=== PATIENT | female | born 1980 | race African-American/Black ===

== ENCOUNTER 2016-08-30 18:00 | Emergency (ER) | payer OTHER, SELFPAY ==
[~2016-08-30] VITALS: Ht 175.3 cm; Wt 52.2 kg
[~2016-08-30 18:00] MED LIST: ALBUTEROL SULF8.5 GM INH; SILVADENE CREAM50 GM TOP
[2016-08-30] MEDS ORDERED: NKM (18:25)
[2016-08-30] MEDS ORDERED: Ketorolac 30mg Inj IM ONE (18:45)
[2016-08-30 19:20] VITALS: BP 120/82
[2016-08-30] MEDS ORDERED: TESSALON PERLE100 MG ORAL (19:43)
[2016-08-30] MEDS ORDERED: PROAIR HFA8.5 GM INH (19:43)
[2016-08-30] MEDS ORDERED: PREDNISONE20 MG ORAL (19:43)
[2016-08-30] MEDS ORDERED: ZITHROMAX250 MG ORAL (19:43)
[2016-08-30 19:50] VITALS: BP 120/82
--- NOTE | 2016-08-31 09:42 | Diagnostic Imaging Report ---
Indication: PAIN Technique: XRAY CHEST 2V Comparison: None. Findings: The cardiomediastinal silhouette is normal. The lungs are clear. There is no evidence of pleural fluid. There is mild scoliosis convex to the right. Impression: Scoliosis. Otherwise normal chest.
--- NOTE | 2016-09-01 12:32 | Emergency Room Report ---
History of Present Illness General Chief Complaint: General Complaint Source: Patient Present Illness HPI The patient is a 36-year-old female presenting for headache, fatigue, coughing, and pain to the right axilla which began one week prior. The pt denies any medical history. Pain is described as a 5/10 dull ache and does not radiate. No known provoking or relieving factors. Cough is described as dry. Pt does admit to subjective fevers and chills. She denies any sick contacts or recent travel. She denies any other symptoms including N, V, hemoptysis, SOB, CP, breast pain, nipple discharge. Allergies: Coded Allergies: No Known Allergies (Unverified , 09/08/13) Patient History Past Medical History: see triage record Pertinent Family History: none Last Menstrual Period: 08/29/2016 Reviewed Nursing Documentation: PMH: Agreed, PSxH: Agreed Nursing Documentation-PMH Past Medical History: No Stated History Hx Cardiac Problems: No Hx Hypertension: No Hx Pacemaker: No Hx Asthma: Yes Hx COPD: No Hx Diabetes: No Hx Cancer: No Hx Gastrointestinal Problems: No Hx Dialysis: No Hx Neurological Problems: No Hx Cerebrovascular Accident: No Hx Seizures: No Review of Systems All Other Systems: negative except mentioned in HPI Physical Exam Vital Signs Date Time Temp Pulse Resp B/P Pulse Ox O2 Delivery O2 Flow Rate FiO2 08/30/16 18:21 98.1 74 16 116/80 94 Room Air Sp02 EP Interpretation: reviewed, normal General Appearance: no apparent distress, alert, GCS 15, non-toxic Head: normocephalic, atraumatic Eyes: bilateral eye PERRL, bilateral eye normal inspection ENT: hearing grossly normal, normal pharynx, no angioedema, normal voice Neck: full range of motion, supple/symm/no masses Respiratory: chest non-tender, no respiratory distress, no accessory muscle use , wheezing - R sided Cardiovascular #1: regular rate, rhythm, no edema Gastrointestinal: normal bowel sounds, non tender, soft, non-distended, no guarding, no rebound Genitourinary: normal inspection, no CVA tenderness Musculoskeletal: back normal, gait/station normal, normal range of motion, non- tender Neurologic: alert, oriented x3, responsive, motor strength/tone normal, sensory intact, normal gait, speech normal Psychiatric: judgement/insight normal, memory normal, mood/affect normal, no suicidal/homicidal ideation Skin: normal color, no rash, warm/dry, well hydrated Lymphatic: no adenopathy Medical Decision Making PA Attestation Dr. Patel is my supervising physician. Patient management was discussed with my supervising physician Diagnostic Impression: Primary Impression: Bronchitis ER Course The pt is a 36 yo F presenting for Fever, cough, and R axilla pain Differential diagnosis include but not limited to PNA, bronchitis, malignancy, muscle strain PE: vitals WNL. NAD HEENT unremarkable RRR. No MRG Chest: There is right-sided wheezing with both inspiration and expiration. No accessory muscle use. No respiratory distress. Chest is nontender. No nodules Right axilla: No edema. No discoloration. No nodules. No lymphadenopathy. Nontender Chest x-ray shows increased perihilar markings. The patient will be treated for bronchitis and is getting ER precautions. Patient will follow up with PMD EKG Diagnostic Results EP Interpretation: NSR Rate: normal Rhythm: NSR ST Segments: no acute changes ASA given to the pt in ED: No PA Scribe Text EKG was reviewed and read with my supervising physician. No acute ST segment changes are seen. Normal rate and rhythm. No acute changes. Chest X-Ray Diagnostic Results EP Interpretation: Yes Findings: no consolidation, no effusion, no pneumothorax, other - increased perihilar markings PA Scribe Text I am acting as scribe for my supervising physician. My supervising physician's interpretation of the chest xrays are there is no consolidation, no effusion, no pneumothorax. There is increased perihilar markings. Last Vital Signs Date Time Temp Pulse Resp B/P Pulse Ox O2 Delivery O2 Flow Rate FiO2 08/30/16 19:50 98.2 92 16 120/82 97 Room Air Status: improved Disposition: HOME, SELF-CARE Condition: Improved Scripts Benzonatate* (TESSALON PERLE*) 100 Mg Capsule 100 MG ORAL THREE TIMES A DAY, #15 PERLE Prov: TERZIAN,CATARINO P.A. 08/30/16 Albuterol Sulfate* (PROAIR HFA*) 8.5 Gm Hfa.aer.ad 2 PUFFS INH Q6H, #8.5 GM 0 Refills Prov: TERZIAN,CATARINO P.A. 08/30/16 Prednisone* (PREDNISONE*) 20 Mg Tablet 40 MG ORAL DAILY, #10 TAB Prov: CATARINO MINOR 08/30/16 Azithromycin* (ZITHROMAX*) 250 Mg Tablet 250 MG ORAL DAILY, #6 TAB 0 Refills Take two tables once daily for 1 day, then one tablet once daily for 4 days. Prov: CATARINO MINOR 08/30/16 Referrals: NOT CHOSEN IPA/MD,REFERRING Patient Instructions: Acute Bronchitis Additional Instructions: I discussed my findings with the patient. All questions and concerns have been answered. Treatment and medication compliance have been addressed. I advised the patient that they need to follow up with PMD in 3-5 days. Return to ED if pain remains or worsens, cough worsens or remains, you notice blood in your sputum, you notice wheezing, you experience a fever, or if needed for any reason. Patient verbalized understanding of discharge instructions. CATARINO MINOR Sep 01, 2016 12:32
--- NOTE | 2016-09-03 00:26 | Cardiology Report ---
APPROVED REPORT EKG Measurement Heart [id number] Normal sinus rhythm Normal ECG
== END 2016-08-30 19:50 | disposition home or self-care (01) ==
LOC: EMR 18:35
DX: J40 Bronchitis, not specified as acute or chronic (principal); J45.909 Unspecified asthma, uncomplicated; R53.83 Other fatigue
CPT/HCPCS: 71020; 93005; 96372; 99283; J1885

== ENCOUNTER 2017-07-10 17:38 | Emergency (ER) | payer MEDICAID, OTHER ==
[~2017-07-10] VITALS: Ht 175.3 cm; Wt 51.7 kg
[~2017-07-10 17:38] MED LIST changes: +NKM; +PREDNISONE20 MG ORAL; +PROAIR HFA8.5 GM INH; +TESSALON PERLE100 MG ORAL; +ZITHROMAX250 MG ORAL
[2017-07-10] MEDS ORDERED: Ketorolac 60mg Inj IM ONE (18:15)
--- NOTE | 2017-07-10 18:16 | Emergency Room Report ---
History of Present Illness General Chief Complaint: Pain Source: Patient, Medical Record Present Illness HPI 37-year-old female presents to the emergency department complaining of 10 out of 10 in severity pain to the right shoulder, upper back and right hip status post falling from a horse that he was riding at a "running pace " 1 week ago. Patient states she landed primarily on the right side of her body she denies hitting her head she denies loss of consciousness and can recall the entire event. She reports bruising and abrasion to the right posterior shoulder. She states pain is exacerbated upon palpation or sudden movements. She states that this accident happened a week ago she's been taking Tylenol with no improvement of her symptoms. Denies numbness tingling or loss of sensation or gross motor movements of the extremities, incontinence of bowel or bladder. Denies CP, Palpitations, LOC, AMS, dizziness, Changes in Vision, Sensation, paresthesias, or a sudden severe headache. Allergies: Coded Allergies: HYDROCORTISONE (Verified Allergy, Unknown, 07/10/17) Uncoded Allergies: SULFA (Allergy, Unknown, 07/10/17) Patient History Past Medical History: see triage record Past Surgical History: none Pertinent Family History: none Last Menstrual Period: 07/04/17 Immunizations: UTD Reviewed Nursing Documentation: PMH: Agreed, PSxH: Agreed Nursing Documentation-PMH Past Medical History: No History, Except For Hx Cardiac Problems: No Hx Hypertension: No Hx Pacemaker: No Hx Asthma: Yes Hx COPD: No Hx Diabetes: No Hx Cancer: No Hx Gastrointestinal Problems: No Hx Dialysis: No Hx Neurological Problems: No Hx Cerebrovascular Accident: No Hx Seizures: No Review of Systems All Other Systems: negative except mentioned in HPI Physical Exam Vital Signs Date Time Temp Pulse Resp B/P (MAP) Pulse Ox O2 Delivery O2 Flow Rate FiO2 07/10/17 17:49 97.3 75 18 121/82 100 Room Air 97.3 Sp02 EP Interpretation: reviewed, normal General Appearance: no apparent distress, alert, GCS 15, non-toxic Head: normocephalic, atraumatic ENT: hearing grossly normal, normal voice Neck: full range of motion Respiratory: chest non-tender, lungs clear, normal breath sounds, speaking full sentences Cardiovascular #1: regular rate, rhythm Musculoskeletal: back normal, gait/station normal, normal range of motion, tender - TTP To the T-Spine midline but primarily right paraspinal , Lateral and posterior right shoulder pain, and lateral and posterior right hip pain. Neurologic: alert, oriented x3, responsive, motor strength/tone normal, sensory intact, speech normal, grossly normal Psychiatric: judgement/insight normal Skin: normal color, no rash, warm/dry, well hydrated, other - no obviuos bruises, no current abrasions, some scarring to the upper right shoulder area undeterminate. Medical Decision Making PA Attestation Dr. Patel is my supervising Physician whom patient management has been discussed with. Diagnostic Impression: Primary Impression: Contusion Qualified Codes: S70.01XA - Contusion of right hip, initial encounter Additional Impressions: Contusion of right scapula Qualified Codes: S40.011A - Contusion of right shoulder, initial encounter Contusion of shoulder, right Qualified Codes: S40.011A - Contusion of right shoulder, initial encounter Back pain Qualified Codes: M54.6 - Pain in thoracic spine Contusion of hip, right Qualified Codes: S70.01XA - Contusion of right hip, initial encounter Acromioclavicular joint separation, type 1 Qualified Codes: S43.101A - Unspecified dislocation of right acromioclavicular joint, initial encounter ER Course 37-year-old female presents to the emergency department complaining of 10 out of 10 in severity pain to the right shoulder, upper back and right hip status post falling from a horse that he was riding at a "running pace " 1 week ago. Patient states she landed primarily on the right side of her body she denies hitting her head she denies loss of consciousness and can recall the entire event. She reports bruising and abrasion to the right posterior shoulder. She states pain is exacerbated upon palpation or sudden movements. She states that this accident happened a week ago she's been taking Tylenol with no improvement of her symptoms. Denies numbness tingling or loss of sensation or gross motor movements of the extremities, incontinence of bowel or bladder. Denies CP, Palpitations, LOC, AMS, dizziness, Changes in Vision, Sensation, paresthesias, or a sudden severe headache. Ddx considered but are not limited to Fracture, dislocation, contusion, Sprain/ Strain/Spasm, ligamental injury just to name a few Vital signs: are WNL, pt. is afebrile H&PE are most consistent with musculoskeletal injury will perform imaging to r/ o fractures/dislocations. ORDERS: X-Rays: Right Shoulder, Right Hip, T-Spine ED INTERVENTIONS: - Toradol IM - Right arm Sling applied by technical translator. Pt. remains neurovascularly intact. d/w pt. conservative treatment, and to follow up with a primary care provider. MRI or further testing may be required if symptoms persist after conservative treatment. . D/w pt. to return to the ED with worsening or new symptoms. DISCHARGE: At this time pt. is stable for d/c to home. Will provide printed patient care instructions, and any necessary prescriptions. Care plan and follow up instructions have been discussed with the patient prior to discharge. Other X-Ray Diagnostic Results Other X-Ray Diagnostic Results #1: X-Ray ordered: T-Spine # of Views/Limited Vs Complete: 3 View Indication: Pain EP Interpretation: Yes PA Xray: Interpretation reviewed, by supervising MD, and agrees with findings. Interpretation: no dislocation, no soft tissue swelling, no fractures Impression: No acute disease - awaiting radiologist review/confirmation Electronically Signed by: Latha Sanford PA-C Other X-Ray Diagnostic Results #2: X-Ray ordered: Right Shoulder # of Views/Limited Vs Complete: 3 View Indication: Pain EP Interpretation: Yes PA Xray: Interpretation reviewed, by supervising MD, and agrees with findings. Interpretation: no dislocation, no soft tissue swelling, no fractures, other - mild grade 1 A/C separation Impression: Other - abnormal Other X-Ray Diagnostic Results #3: X-Ray ordered: Right Hip # of Views/Limited Vs Complete: 2 View Indication: Pain EP Interpretation: Yes PA Xray: Interpretation reviewed, by supervising MD, and agrees with findings. Interpretation: no dislocation, no soft tissue swelling, no fractures Impression: No acute disease Electronically Signed by: Latha Sanford PA-C Last Vital Signs Date Time Temp Pulse Resp B/P (MAP) Pulse Ox O2 Delivery O2 Flow Rate FiO2 07/10/17 17:49 97.3 75 18 121/82 100 Room Air 97.3 Disposition: HOME, SELF-CARE Condition: Stable Scripts Ibuprofen* (MOTRIN*) 600 Mg Tablet 600 MG ORAL THREE TIMES A DAY, #20 TAB 0 Refills Prov: Latha Sanford 07/10/17 Acetaminophen With Codeine (T#3) (TYLENOL #3 TAB*) Y Tab 1 TAB ORAL Q6HR Y for For Pain, #6 TAB Prov: Latha Sanford 07/10/17 Patient Instructions: Contusion, [id number], Hip Pain Additional Instructions: Take medications as directed. Follow up with a Primary Care Provider in 3-5 days, even if your symptoms have resolved. --Please review list of primary care clinics, if you do not already have a primary care provider Return sooner to ED if new symptoms occur, or current symptoms become worse. Do not drink alcohol, drive, or operate heavy machinery while taking [ ] as this may cause drowsiness. - Please note that this Emergency Department Report was dictated using [employer] claims supervisor technology software, occasionally this can lead to erroneous entry secondary to interpretation by the dictation equipment. Latha Sanford Jul 10, 2017 18:16
[2017-07-10 18:27] VITALS: BP 121/82
[2017-07-10] MEDS ORDERED: IBUPROFEN600 MG ORAL (19:39)
[2017-07-10] MEDS ORDERED: ACETAMINOPHEN-1 EAC1 ORAL (19:39)
[2017-07-10 19:48] VITALS: BP 120/80
--- NOTE | 2017-07-11 08:49 | Diagnostic Imaging Report ---
Indication: Shoulder pain Technique: Right shoulder, 3 views Comparison: None. Findings: The osseous structures are intact. There is no fracture or destruction. The visualized joints are normal. The soft tissues are unremarkable. Impression: Normal shoulder.
--- NOTE | 2017-07-11 08:50 | Diagnostic Imaging Report ---
Indication: Right hip pain Technique: XRAY Hip Routine 2v+ R Comparison: None. Findings: The osseous structures are intact. There is no fracture or destruction. The visualized joints are normal. The soft tissues are unremarkable. Impression: Normal right hip
--- NOTE | 2017-07-11 08:53 | Diagnostic Imaging Report ---
Indication: Reason For Exam: PAIN Technique: XRAY T Spine 2v Comparison: None. Findings: There is mild scoliosis convex to the right. There is a incompletely visualized compensatory curve in the lumbar spine. No fracture. No evidence of bone destruction. Alignment is otherwise normal. Impression: Mild scoliosis. No acute abnormality. The above report is concordant with preliminary reading by [employer] .
== END 2017-07-10 19:52 | disposition home or self-care (01) ==
LOC: EMR 18:15
DX: S40.011A Contusion of right shoulder, initial encounter (principal); S70.01XA Contusion of right hip, initial encounter; V80.010A Animal-rider injured by fall from or being thrown from horse in noncollision accident, initial encounter; Y92.9 Unspecified place or not applicable; M54.6 Pain in thoracic spine; J45.909 Unspecified asthma, uncomplicated; Z88.2 Allergy status to sulfonamides; Z88.8 Allergy status to other drugs, medicaments and biological substances; M41.84 Other forms of scoliosis, thoracic region
CPT/HCPCS: 29240; 72070; 96372; 99284

== ENCOUNTER 2017-10-28 12:09 | Emergency (ER) | payer MEDICAID ==
[~2017-10-28] VITALS: Ht 175.3 cm; Wt 50.8 kg
[~2017-10-28 12:09] MED LIST changes: +ACETAMINOPHEN-1 EAC1 ORAL; +IBUPROFEN600 MG ORAL
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
[2017-10-28] MEDS ORDERED: IBUPROFEN600 MG ORAL (14:00)
[2017-10-28] MEDS ORDERED: NORCO 5-325 TA1 EACH ORAL (14:00)
[2017-10-28 14:20] VITALS: BP 109/74
--- NOTE | 2017-10-28 16:47 | Diagnostic Imaging Report ---
Indication: Foot pain Technique: 3 or 4 views right foot Comparison: none Findings: There is mild hallux valgus. No acute fractures. No dislocations. Joint spaces are preserved. Impression: No acute process
--- NOTE | 2017-10-28 16:48 | Diagnostic Imaging Report ---
Indication: Pain Technique: 3 views left toes Comparison: none Findings: No acute fractures. No dislocations. The joint spaces are preserved. Impression: Negative
== END 2017-10-28 14:21 | disposition home or self-care (01) ==
LOC: EMR 13:07
DX: S92.525A Nondisplaced fracture of middle phalanx of left lesser toe(s), initial encounter for closed fracture (principal); V93.39XA Fall on board unspecified watercraft, initial encounter; Y93.16 Activity, rowing, canoeing, kayaking, rafting and tubing; Y92.828 Other wilderness area as the place of occurrence of the external cause; Z88.2 Allergy status to sulfonamides; Z88.8 Allergy status to other drugs, medicaments and biological substances; J45.909 Unspecified asthma, uncomplicated; S90.30XA Contusion of unspecified foot, initial encounter
CPT/HCPCS: 99284

== ENCOUNTER 2018-05-20 17:03 | Emergency (ER) | payer MEDICAID ==
[~2018-05-20] VITALS: Ht 175.3 cm; Wt 50.8 kg
[~2018-05-20 17:03] MED LIST changes: +NORCO 5-325 TA1 EACH ORAL
[2018-05-20 18:44] VITALS: BP 133/84
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
--- NOTE | 2018-05-20 18:47 | NUR ---
ED Nurse Note: addendum: pt denies si/hi/vh/ah, states she just needs to talk to someone. Will continue to monitor.
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
[2018-05-20] MEDS ORDERED: IBUPROFEN600 MG ORAL (20:22)
--- NOTE | 2018-05-20 20:40 | NUR ---
ED Nurse Note: Pt discharge instruction provided w/ prescription, id band removed, pt education done via discussion and handout, pt verbalized understanding and agrees with plan, pt advised to follow up with pcp regarding pt's condition, pt advised to return to ed if s/s worsen or new s/s develop. Pt was provided with list of mental clinic regarding depression complaints.
[2018-05-20 20:42] VITALS: BP 129/78
--- NOTE | 2018-05-22 15:49 | Diagnostic Imaging Report ---
Indication: Trauma. Nasal trauma and pain Findings: Bilateral views of the nasal bone and a Malik' view were obtained. The examination shows no acute fracture. The paranasal sinuses as visualized appear clear. Soft tissues unremarkable. Impression: Negative nasal bone series
== END 2018-05-20 20:40 | disposition home or self-care (01) ==
LOC: EMR 17:40
DX: S02.2XXA Fracture of nasal bones, initial encounter for closed fracture (principal); W51.XXXA Accidental striking against or bumped into by another person, initial encounter; Y92.89 Other specified places as the place of occurrence of the external cause; J45.909 Unspecified asthma, uncomplicated; Z88.2 Allergy status to sulfonamides; Z88.8 Allergy status to other drugs, medicaments and biological substances
CPT/HCPCS: 70160; 99283

== ENCOUNTER 2019-02-11 15:38 | Emergency (ER) | payer MEDICAID ==
[~2019-02-11] VITALS: Ht 175.3 cm; Wt 50.8 kg
[2019-02-11] MEDS ORDERED: XANAX0.25 MG ORAL (15:51)
[2019-02-11 16:24] VITALS: BP 113/74
--- NOTE | 2019-02-11 16:24 | NUR ---
ED Nurse Note:pt. went for x-ray
--- NOTE | 2019-02-11 16:48 | Diagnostic Imaging Report ---
EXAM: XR Sinuses Paranasal, 4 Views CLINICAL HISTORY: TRAUMA TECHNIQUE: Frontal, lateral, Water's, and apical lordotic views of the sinuses and paranasal structures. COMPARISON: No relevant prior studies available. FINDINGS: Bones joints: Unremarkable. No visible depressed fracture. Sinuses: Unremarkable. No air-fluid levels. Nasal cavity septum: Unremarkable. Soft tissues: Unremarkable. IMPRESSION: Unremarkable sinus x-rays.
--- NOTE | 2019-02-11 17:01 | Emergency Room Report ---
History of Present Illness General Chief Complaint: Pain Source: Patient Present Illness HPI 39-year-old female with 8 months of nasal bone fracture here requesting a sinus x-ray series as been requested by her plastic specialists Dr. Ryan. Patient has been having continuous pain and pressure in the left side of nasal septum as well as left eye. Reports blurry vision intermittently. Ultrasound has been done on the eye at bedside by Dr. Patel today to detect possible retinal detachment which was ruled out based on bedside ultrasound. Patient rating pain 10 out of 10 and constant reports that she has been taking pain medication however needs a better solution as she keeps having lots and lots of sinus pressure. stuart, water view, and SCV sinus areas are requested by plastic specialist. Patient denies all other injuries and symptoms. Allergies: Coded Allergies: HYDROCORTISONE (Verified Allergy, Unknown, 07/10/17) Uncoded Allergies: SULFA (Allergy, Unknown, 07/10/17) Patient History Past Medical History: see triage record Past Surgical History: unable to obtain Pertinent Family History: none Last Menstrual Period: a week ago Now: No Immunizations: UTD Reviewed Nursing Documentation: PMH: Agreed; PSxH: Agreed Nursing Documentation-PMH Past Medical History: No History, Except For Hx Cardiac Problems: No Hx Hypertension: No Hx Pacemaker: No Hx Asthma: Yes Hx COPD: No Hx Diabetes: No Hx Cancer: No Hx Gastrointestinal Problems: No Hx Dialysis: No History Of Psychiatric Problem: Yes - anxiety Hx Neurological Problems: No Hx Cerebrovascular Accident: No Hx Seizures: No Review of Systems All Other Systems: negative except mentioned in HPI Physical Exam Vital Signs Date Time Temp Pulse Resp B/P (MAP) Pulse Ox O2 Delivery O2 Flow Rate FiO2 02/11/19 15:47 98.2 67 16 113/74 (87) 99 Room Air Sp02 EP Interpretation: reviewed, normal General Appearance: no apparent distress, alert, GCS 15, non-toxic Head: normocephalic, atraumatic Eyes: bilateral eye normal inspection, bilateral eye PERRL ENT: hearing grossly normal, normal pharynx, no angioedema, normal voice Neck: full range of motion, supple/symm/no masses Respiratory: chest non-tender, lungs clear, normal breath sounds, no rhonchi, speaking full sentences Cardiovascular #1: regular rate, rhythm, no edema, no murmur Gastrointestinal: normal bowel sounds, non tender, soft, non-distended, no guarding, no rebound Rectal: deferred Genitourinary: normal inspection, no CVA tenderness Musculoskeletal: back normal, gait/station normal, normal range of motion, non- tender Neurologic: alert, oriented x3, responsive, motor strength/tone normal, sensory intact, speech normal Psychiatric: judgement/insight normal, memory normal, mood/affect normal, no suicidal/homicidal ideation Skin: no rash Lymphatic: no adenopathy Medical Decision Making PA Attestation All my diagnosis and treatment plans were reviewed ad discussed with my supervising physician Dr. Patel Diagnostic Impression: Primary Impression: Sinus pain ER Course 39-year-old female with 8 months of nasal bone fracture here requesting a sinus x-ray series as been requested by her plastic specialists Dr. Ryan. Patient has been having continuous pain and pressure in the left side of nasal septum as well as left eye. Reports blurry vision intermittently. Ultrasound has been done on the eye at bedside by Dr. Patel today to detect possible retinal detachment which was ruled out based on bedside ultrasound. Patient rating pain 10 out of 10 and constant reports that she has been taking pain medication however needs a better solution as she keeps having lots and lots of sinus pressure. stuart, water view, and SCV sinus areas are requested by plastic specialist. Patient denies all other injuries and symptoms. Ddx considered but are not limited to: Chronic sinus pain, retinal detachment, sinus pressure, sinus abscess Vital signs: are WNL, pt. is afebrile H&PE are most consistent with: Sinus pain ORDERS: Sinus series ED INTERVENTIONS: Bedside ultrasound of the left DISCHARGE: At this time pt. is stable for d/c to home. Will provide printed patient care instructions, and any necessary prescriptions. Care plan and follow up instructions have been discussed with the patient prior to discharge. Patient was provided with a CD of the images that were done today as well as report to take to Dr. Ryan . Other X-Ray Diagnostic Results Other X-Ray Diagnostic Results : X-Ray ordered: sinus serries # of Views/Limited Vs Complete: 4 View Indication: Pain EP Interpretation: Yes PA Xray: Interpretation reviewed, by supervising MD, and agrees with findings. Interpretation: no dislocation, no soft tissue swelling, no fractures Impression: No acute disease Electronically Signed by: Nahal Saheli PA-C PA Scribe Text TECHNIQUE: Frontal, lateral, Water's, and apical lordotic views of the sinuses and paranasal structures. COMPARISON: No relevant prior studies available. FINDINGS: Bones/joints: Unremarkable. No visible depressed fracture. Sinuses: Unremarkable. No air-fluid levels. Nasal cavity/septum: Unremarkable. Soft tissues: Unremarkable. IMPRESSION: Unremarkable sinus x-rays. Last Vital Signs Date Time Temp Pulse Resp B/P (MAP) Pulse Ox O2 Delivery O2 Flow Rate FiO2 02/11/19 16:24 98.2 78 16 113/74 99 Room Air Disposition: HOME, SELF-CARE Condition: Stable Referrals: Tiago Ryan MD (PCP) Patient Instructions: Sinus Headache Kallie Funk Feb 11, 2019 17:01
[2019-02-11 17:06] VITALS: BP 113/74
--- NOTE | 2019-02-11 17:07 | NUR ---
ER DISCHARGE NOTE: Patient is cleared to be discharged per ERMD, pt is aox4, on room air, with stable vital signs. pt was given dc and prescription instructions, pt was able to verbalize understanding, pt is able to ambulate with steady gait. pt took all belongings.
== END 2019-02-11 17:31 | disposition home or self-care (01) ==
LOC: EMR 16:10
DX: J34.89 Other specified disorders of nose and nasal sinuses (principal); Z88.8 Allergy status to other drugs, medicaments and biological substances; Z88.2 Allergy status to sulfonamides; J45.909 Unspecified asthma, uncomplicated; F41.9 Anxiety disorder, unspecified
CPT/HCPCS: 70220; Z7502; 99283

== ENCOUNTER 2019-05-22 20:32 | Emergency (ER) | payer MEDICAID ==
[~2019-05-22] VITALS: Ht 175.3 cm; Wt 54.4 kg
[~2019-05-22 20:32] MED LIST changes: +XANAX0.25 MG ORAL
[2019-05-22] MEDS ORDERED: ZYRTEC10 MG ORAL (21:44)
[2019-05-22] MEDS ORDERED: EPIPEN 2-P0.3 MG/0.3 IM (21:44)
--- NOTE | 2019-05-22 21:44 | Emergency Room Report ---
History of Present Illness General Chief Complaint: Allergic Reaction Source: Patient Present Illness HPI 39-year-old female history of allergies, presents with spider bite to the right lower vagina when she was in [place] patient then had a diffuse urticarial rash throughout her body which she took a 5-day course of prednisone which helped, she no longer has itching however the rash persists, no fevers no chills no shortness of breath no dyspnea patient was worried. she wants to know what she can try. Allergies: Coded Allergies: HYDROCORTISONE (Verified Allergy, Unknown, 07/10/17) Uncoded Allergies: SULFA (Allergy, Unknown, 07/10/17) Patient History Past Medical History: see triage record Last Menstrual Period: 05/18/19 Now: No Reviewed Nursing Documentation: PMH: Agreed; PSxH: Agreed Nursing Documentation-PMH Past Medical History: No History, Except For Hx Cardiac Problems: No Hx Hypertension: No Hx Pacemaker: No Hx Asthma: Yes Hx COPD: No Hx Diabetes: No Hx Cancer: No Hx Gastrointestinal Problems: No Hx Dialysis: No Hx Neurological Problems: No Hx Cerebrovascular Accident: No Hx Seizures: No Review of Systems All Other Systems: negative except mentioned in HPI Physical Exam Vital Signs Date Time Temp Pulse Resp B/P (MAP) Pulse Ox O2 Delivery O2 Flow Rate FiO2 05/22/19 20:44 98.1 84 20 112/69 (83) 100 Room Air Sp02 EP Interpretation: reviewed, normal General Appearance: well appearing, no apparent distress, alert Head: normocephalic, atraumatic Eyes: bilateral eye PERRL, bilateral eye EOMI ENT: uvula midline, moist mucus membranes Neck: supple, thyroid normal, supple/symm/no masses Respiratory: lungs clear, no respiratory distress, no retraction, no accessory muscle use Cardiovascular #1: normal peripheral pulses, regular rate, rhythm, no edema, no gallop, no murmur Gastrointestinal: non tender, soft, no guarding, no rebound Genitourinary: other - Miriam RN director [employer], Patient with a 9 o clock cyst, not painful to touch, no discharge Musculoskeletal: normal inspection Neurologic: alert, oriented x3 Psychiatric: mood/affect normal Skin: warm/dry, other - Papules throughout her body, urticarial Medical Decision Making Diagnostic Impression: Primary Impression: Allergic reaction Qualified Codes: T78.40XA - Allergy, unspecified, initial encounter Additional Impression: Bartholin gland cyst ER Course 39-year-old female presents with 2 distinct problems, most likely a Bartholin cyst, additionally patient also with a hive-like reaction throughout her body, patient is slowly improving counseled patient that she may have had an allergic reaction will provide EpiPen just in case, no wheezing on exam. Will provide cetirizine, counseled patient that because she just recently took steroids would not recommend starting a steroid pack will also provide an EpiPen patient will also follow-up with a technology development intern who will extract the cyst as well as send it for pathology possibly Last Vital Signs Date Time Temp Pulse Resp B/P (MAP) Pulse Ox O2 Delivery O2 Flow Rate FiO2 05/22/19 20:44 98.1 84 20 112/69 (83) 100 Room Air Disposition: HOME, SELF-CARE Condition: Stable Scripts Epinephrine (Epipen 2-Ray) 0.3 Mg/0.3 Ml Auto.injct 0.3 MG IM ONCE PRN for anaphylaxis, #1 EA Prov: Clifford Vale MD 05/22/19 Cetirizine Hcl* (ZYRTEC*) 10 Mg Tablet 10 MG ORAL DAILY, #30 TAB 0 Refills Prov: Clifford Vale MD 05/22/19 Referrals: [facility] Patient Instructions: Allergies, Bartholin Cyst or Abscess, [id number] Additional Instructions: The patient was provided with discharge instructions, notified to follow-up with a primary care doctor and or specialist in the next 24-48 hours, and to return to the ED if they have worsening of their symptoms. Please note that this report is being documented using [employer] technology. This can lead to erroneous entry secondary to incorrect interpretation by the dictating instrument. Clifford Vale MD May 22, 2019 21:44
[2019-05-22 21:47] VITALS: BP 112/69
--- NOTE | 2019-05-22 21:50 | NUR ---
ED Nurse Note: Patient walked in to ED c/o allergic reaction etiology unk. x 1 week. Reports rash to face neck arms and back. Pt also c/o small lump and pain on right labia. Denies discharges. No SOB. VSS.
[2019-05-22 21:53] VITALS: BP 112/69
--- NOTE | 2019-05-22 21:53 | NUR ---
ED Nurse Note: Pt cleared by ERMD for discharge. DC instructions/prescription was given and explained to pt and verbalized understanding of teachings. All medical deviecs such as ID band removed. Pt is AAO x4, ambulatory and left with all personal belongings.
== END 2019-05-22 21:53 | disposition home or self-care (01) ==
LOC: EMR 21:53
DX: T78.40XA Allergy, unspecified, initial encounter (principal); N75.0 Cyst of Bartholin's gland; X58.XXXA Exposure to other specified factors, initial encounter; Y92.9 Unspecified place or not applicable; Z88.2 Allergy status to sulfonamides; Z88.8 Allergy status to other drugs, medicaments and biological substances
CPT/HCPCS: 81025; Z7502; 99282

== ENCOUNTER 2020-08-07 15:38 | Emergency (ER) | payer MEDICAID ==
[~2020-08-07] VITALS: Ht 172.7 cm; Wt 51.7 kg
[~2020-08-07 15:38] MED LIST changes: +EPIPEN 2-P0.3 MG/0.3 IM; +ZYRTEC10 MG ORAL
[2020-08-07 15:47] VITALS: BP 109/79
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
--- NOTE | 2020-08-07 16:06 | Emergency Room Report ---
History of Present Illness General Chief Complaint: Lower Extremity Injury Source: Patient Present Illness HPI 40-year-old female with history of anxiety currently taking Xanax here complaining of bilateral feet injury that occurred 1 week ago. Patient reports that she woke up in the middle of the night walks for the restroom as she accidentally had right foot on third and fourth and fifth digits 2 the leg of a table, on her way back from the bathroom she left her other foot to the leg of the table. Reports that she has been by taking both feet with minimal relief and taking Advil with minimal relief. Has not yet had any imaging done. Denies tingling or numbness. Rates the pain 7 out of 10 today without radiation. Is neurovascularly intact. Denies other injuries. Denies . Full strength in lower extremities Allergies: Coded Allergies: HYDROCORTISONE (Verified Allergy, Unknown, 07/10/17) Uncoded Allergies: SULFA (Allergy, Unknown, 07/10/17) COVID-19 Screening Contact w/high risk pt: No Experienced COVID-19 symptoms?: No COVID-19 Testing performed [employer]ES CONSULTANT: No COVID-19 Screening: Negative COVID-19 Patient History Past Medical History: see triage record Past Surgical History: none Pertinent Family History: none Now: No Reviewed Nursing Documentation: PMH: Agreed; PSxH: Agreed Nursing Documentation-PMH Hx Cardiac Problems: No Hx Hypertension: No Hx Pacemaker: No Hx Asthma: No Hx COPD: No Hx Diabetes: No Hx Cancer: No Hx Gastrointestinal Problems: No Hx Dialysis: No History Of Psychiatric Problem: No Hx Neurological Problems: No Hx Cerebrovascular Accident: No Hx Seizures: No Review of Systems All Other Systems: negative except mentioned in HPI Physical Exam Vital Signs Date Time Temp Pulse Resp B/P (MAP) Pulse Ox O2 Delivery O2 Flow Rate FiO2 08/07/20 15:47 98.1 82 18 109/79 (89) 97 Room Air Sp02 EP Interpretation: reviewed, normal General Appearance: no apparent distress, alert, GCS 15, non-toxic Head: normocephalic, atraumatic Eyes: bilateral eye normal inspection, bilateral eye PERRL ENT: normal pharynx Neck: supple Respiratory: no rhonchi, no retraction Cardiovascular #1: regular rate, rhythm, no edema Cardiovascular #2: 2+ dorsalis pedis (R), 2+ dorsalis pedis (L) Gastrointestinal: non tender, soft Rectal: deferred Musculoskeletal: back normal, gait/station normal, no lower extremity edema, tender - 3rd-5th toe right foot, 3rd toe left foot, other - Is neurovascularly intact Neurologic: alert, motor strength/tone normal, oriented x3, sensory intact, responsive, speech normal Psychiatric: judgement/insight normal, memory normal, mood/affect normal, no suicidal/homicidal ideation Skin: no rash Lymphatic: no adenopathy Procedures Splinting Splinting #1: Consent: Verbal Location: left foot Pre-Made Type: post op shoe and allyssa tape Pre-Proc Neuro Vasc Exam: normal Post-Proc Neuro Vasc Exam: normal Patient Tolerated: Well Splinting #2: Consent: Verbal Location: right foot Pre-Made Type: post op shoe, allyssa tape Pre-Proc Neuro Vasc Exam: normal Post-Proc Neuro Vasc Exam: normal Patient Tolerated: Well Complications: None Progress crutches provided Medical Decision Making PA Attestation ALL Diagnosis and treatment plan reviewed and discussed with my supervising physician Dr. Wahl Diagnostic Impression: Primary Impression: Crush injury, toe Additional Impression: Foot sprain ER Course 40-year-old female with history of anxiety currently taking Xanax here complaining of bilateral feet injury that occurred 1 week ago. Patient reports that she woke up in the middle of the night walks for the restroom as she accidentally had right foot on third and fourth and fifth digits 2 the leg of a table, on her way back from the bathroom she left her other foot to the leg of the table. Reports that she has been by taking both feet with minimal relief and taking Advil with minimal relief. Has not yet had any imaging done. Denies tingling or numbness. Rates the pain 7 out of 10 today without radiation. Is neurovascularly intact. Denies other injuries. Denies . Full strength in lower extremities Ddx considered but are not limited to: foot fracture, foot sprain, foot contusion, foot strain Vital signs: are WNL, pt. is afebrile H&PE are most consistent with: foot sprain, crushing injury toe ORDERS: foot Xray , robaxin, motrin ED INTERVENTIONS: post op shoe, allyssa tape, crutches DISCHARGE: At this time pt. is stable for d/c to home. Will provide printed patient care instructions, and any necessary prescriptions. Care plan and follow up instructions have been discussed with the patient prior to discharge. Take medication as directed, follow with rac specialist, if worsening symptoms return to the emergency room Other X-Ray Diagnostic Results Other X-Ray Diagnostic Results #1: X-Ray ordered: Left foot # of Views/Limited Vs Complete: 3 View Indication: Pain EP Interpretation: Yes NILAM Xray: Interpretation reviewed, by supervising MD, and agrees with findings. Interpretation: no dislocation, no soft tissue swelling, no fractures Impression: No acute disease Electronically Signed by: Kallie Deras PA-C Other X-Ray Diagnostic Results #2: X-Ray ordered: Right foot # of Views/Limited Vs Complete: 3 View Indication: Pain EP Interpretation: Yes NILAM Xray: Interpretation reviewed, by supervising MD, and agrees with findings. Interpretation: no dislocation, no soft tissue swelling, no fractures Impression: No acute disease Electronically Signed by: Kallie Deras PA-C Last Vital Signs Date Time Temp Pulse Resp B/P (MAP) Pulse Ox O2 Delivery O2 Flow Rate FiO2 08/07/20 15:47 98.1 82 18 109/79 (89) 97 Room Air Disposition: HOME, SELF-CARE Condition: Stable Patient Instructions: Crush Injury, Fingers or Toes, [id number], Foot Sprain Additional Instructions: take medication as directed, follow with rac specialist, if worsening symptoms return to the emergency room Kallie Funk Aug 07, 2020 16:06
--- NOTE | 2020-08-07 16:28 | Diagnostic Imaging Report ---
EXAM: X-RAY XRAY Foot Complete L CLINICAL HISTORY: Trauma with foot pain. COMPARISON: None FINDINGS: Total of 3 views of the left foot were obtained. Alignment is anatomic. There is no fracture, bony lesions or erosions. Joint spaces are unremarkable. Surrounding soft tissue is normal. IMPRESSION: NO FRACTURE.
--- NOTE | 2020-08-07 16:29 | Diagnostic Imaging Report ---
EXAM: X-RAY XRAY Foot Complete R CLINICAL HISTORY: Trauma with foot pain. COMPARISON: None FINDINGS: Total of 3 views of the right foot were obtained. Alignment is anatomic. There is no fracture, bony lesions or erosions. Joint spaces are unremarkable. Surrounding soft tissue is normal. IMPRESSION: NO FRACTURE.
[2020-08-07] MEDS ORDERED: ROBAXIN-500MG ORAL (16:37)
[2020-08-07] MEDS ORDERED: IBUPROFEN600 M1 ORAL (16:37)
== END 2020-08-07 17:04 | disposition home or self-care (01) ==
LOC: EMR 16:22
DX: S99.922A Unspecified injury of left foot, initial encounter (principal); S97.109A Crushing injury of unspecified toe(s), initial encounter; S93.609A Unspecified sprain of unspecified foot, initial encounter; W22.03XA Walked into furniture, initial encounter; Y92.9 Unspecified place or not applicable; Z88.2 Allergy status to sulfonamides; Z88.8 Allergy status to other drugs, medicaments and biological substances
CPT/HCPCS: 29515; 73630; Z7502; 99284